=== PATIENT | female | born 1950 | race Caucasian/White ===

== ENCOUNTER → 2019-06-01 | Outpatient (CLI) | payer MEDICARE ==
--- NOTE | 2019-06-01 12:11 | KCIC ---
Examination: MRI of the left shoulder without contrast HISTORY: History of left shoulder pain COMPARISON: None available TECHNIQUE: Multiplanar, multisequence MR imaging of the left shoulder performed without contrast. FINDINGS: The long head of the biceps tendon within the bicipital groove. The attachment of the long head of the biceps tendon to the superior labral anchor grossly appears intact. There is mild increased T2 signal identified in the subscapularis, supraspinatus, infraspinatus tendons likely mild tendinosis. The muscle bulk grossly appears unremarkable. The acromion is type II. Moderate degenerative changes identified in the acromioclavicular joint. Mild trabecular edema identified in the distal clavicle and acromion. The labrum grossly appears unremarkable. IMPRESSION: 1. Rotator cuff tendinosis. 2. Moderate degenerative changes acromioclavicular joint. Electronically signed by: Anirudh Byrd MD (06/01/2019 12:08 PM) [id number]
== END | disposition home or self-care (01) ==
LOC: KCIC MRI 10:48
PROVIDERS: ATTEND Family Medicine
DX: M19.012 Primary osteoarthritis, left shoulder (principal); M75.82 Other shoulder lesions, left shoulder
CPT/HCPCS: 73221